=== PATIENT | male | born 1965 | race Asian ===

== ENCOUNTER 2018-08-29 14:07 | Inpatient (IN) | payer BC ==
[~2018-08-29] VITALS: Ht 157.5 cm; Wt 65.0 kg
[2018-08-29 14:12] VITALS: Ht 157.5 cm; Wt 65.0 kg
[2018-08-29] MEDS ORDERED: SOD CHLORIDE 0.9% 1,000 ML IV STA (14:24)
--- NOTE | 2018-08-29 14:40 | ERD ---
ER Documentation Chief Complaint Chief Complaint SUDDEN ONSET OF CP WHEN LIFTING HEAVY OBJECT. PT DIAPHORETIC AND DIZZY HPI This is a 53-year-old male with no significant past medical history who is presenting with onset sharp midsternal nonradiating chest pain that occurred while he was lifting a printer upstairs. The patient felt suddenly lightheaded at the time with an urge to urinate. He did not fully syncopized. He was able to go to urinate without difficulty in the bathroom. He also endorses a brief episode of diaphoresis. He did not feel short of breath. He was not nauseated. His symptoms lasted a few minutes. The patient does endorse drinking multiple cups of coffee. He feels dehydrated and hungry and believes that this combination led to this event today. The patient's symptoms have since resolved. He did eat some crackers and feels better. The patient currently denies any complaints. He does not endorse any other alleviating or exacerbating factors per The patient denies feeling sick recently. The patient denies fever or chills. The patient has had no headache or vision changes. The patient does not endorse neck or back pain. The patient denies dizziness. The patient denies abdominal pain. The patient denies changes to bowel movements or urination. The patient has had no focal deficits. The patient has had no weakness or numbness or tingling to the face or extremities. ROS All systems reviewed and are negative except as per history of present illness. Medications Home Meds No Active Prescriptions or Reported Meds Allergies Allergies: Coded Allergies: No Known Allergy (Unverified , 08/29/18) PMhx/Soc Medical and Surgical Hx: pt denies Medical Hx, pt denies Surgical Hx History of Surgery: No Hx Neurological Disorder: No Hx Respiratory Disorders: No Hx Cardiac Disorders: No Hx Psychiatric Problems: No Hx Miscellaneous Medical Probl: No Hx Alcohol Use: No Hx Substance Use: No Hx Tobacco Use: No FmHx Family History: No diabetes Physical Exam Vitals Vital Signs Date Temp Pulse Resp B/P (MAP) Pulse Ox O2 O2 Flow FiO2 Time Delivery Rate 08/29/18 Nasal 2 14:50 Cannula 08/29/18 97.4 66 17 165/96 99 14:12 (119) Physical Exam Const: No apparent distress, well-developed, well-nourished Head: Normocephalic, Atraumatic Eyes: Normal Conjunctiva. Extraocular movements intact. Pupils equal, round and reactive to light ENT: Normal External Ears, Nose and Mouth. Neck: Full range of motion. No meningismus. Resp: Clear to auscultation bilaterally, No wheezes, rales or rhonchi Cardio: Regular rate and rhythm. No murmurs, rubs or gallops Abd: Soft, non tender, non distended. Normal bowel sounds Skin: No petechiae or rashes Back: No midline tenderness. No CVA tenderness Ext: No cyanosis, or edema Neur: Awake and alert, oriented 4. Cranial nerves intact. No facial droop. Normal strength, sensation and coordination. Psych: Normal Mood and Affect Result Diagram: 08/29/18 1444 08/29/18 1444 Results 24 hrs Laboratory Tests Test 08/29/18 14:28 08/29/18 14:44 Bedside Glucose 85 mg/dL White Blood Count 11.1 10^3/ul Red Blood Count 4.83 10^6/ul Hemoglobin 15.2 g/dl Hematocrit 44.6 % Mean Corpuscular Volume 92.3 fl Mean Corpuscular Hemoglobin 31.5 pg Mean Corpuscular Hemoglobin Concent 34.1 g/dl Red Cell Distribution Width 12.5 % Platelet Count 192 10^3/UL Mean Platelet Volume 9.9 fl Immature Granulocytes % 0.400 % Neutrophils % 61.4 % Lymphocytes % 25.6 % Monocytes % 6.4 % Eosinophils % 5.8 % Basophils % 0.4 % Nucleated Red Blood Cells % 0.0 /100WBC Immature Granulocytes # 0.040 10^3/ul Neutrophils # 6.8 10^3/ul Lymphocytes # 2.9 10^3/ul Monocytes # 0.7 10^3/ul Eosinophils # 0.6 10^3/ul Basophils # 0.1 10^3/ul Nucleated Red Blood Cells # 0.0 10^3/ul Sodium Level 137 mmol/L Potassium Level 3.6 mmol/L Chloride Level 103 mmol/L Carbon Dioxide Level 25 mmol/L Anion Gap 9 Blood Urea Nitrogen 14 mg/dl Creatinine 0.92 mg/dl Est Glomerular Filtrat Rate mL/min > 60 mL/min Glucose Level 115 mg/dl Calcium Level 9.0 mg/dl Troponin I 0.402 ng/ml Current Medications Medications Dose Sig/Long Start Time Status Last (Trade) Ordered Route PRN Stop Time Admin Dose Reason Admin Sodium 1,000 ml @ Q1H STAT 08/29/18 DC 08/29/18 Chloride 1,000 mls/hr IV 14:24 08/29/18 14:49 15:23 Aspirin 324 mg ONCE ONCE 08/29/18 DC 08/29/18 (Aspirin) PO 15:30 08/29/18 16:00 15:31 Procedures/MDM MDM The patient's presentation warrants further investigation. Previous medical records, if available, were reviewed. LABS The patient's laboratory testing was obtained and reviewed. No emergent tr eatment was required unless described below. CBC: No E/o systemic infection or severe anemia or thrombocytopenia Chemistry: No E/o severe acidosis or alkalosis or renal failure or diabetic ketoacidosis Troponin: E/o acute ischemia EKG EKG read by me: Rate/Rhythm: Regular rate and rhythm at a rate of 67 bpm Intervals: Normal Clio: Normal Impression: LVH with early repolarization abnormality. No evidence of acute ischemia. IMAGING Imaging and Radiology interpretation reviewed. CXR FINDINGS: The lungs are clear. The heart size is normal. There is no pleural effusion. There is no pneumothorax. IMPRESSION: Normal chest radiograph. Electronically viewed and signed by .Pancho Herrera MD, MD on 08/29/2018 14:51 TREATMENT/DISPOSITION The patient presents with symptoms concerning for chest pain a nearsyncopal event. The patient's EKG reveals nonspecific repolarization changes including LVH with early repolarization. The patient was also hypertensive in the emergency department, which appears to have been undiagnosed, as the patient is not on any medications and does not report any medical problems. The patient's troponin is also elevated, which is very concerning for an NSTEMI. This is likely to be the cause of his symptoms today. The patient was given aspirin in the emergency department. Other etiologies of syncope were considered. The patient endorses feeling dehydrated and not eating today. He endorses drinking multiple cups of coffee. The patient was also lifting something quite heavy. I do have suspicion for a vasovagal event today as well. The patient has a reassuring physical exam. The patient is not clinically orthostatic. The patient is not dizzy. I have decreased suspicion for vertigo. The patient has no signs of emergent or symptomatic anemia. The patient does not have any emergent electrolyte or metabolic emergencies. I have decrease suspicion for a thyroid disorder. The patient is not toxic appearing. I have decreased suspicion for an infectious etiology of symptoms. I do not see evidence of any emergent cardiac arrhythmia, which includes but is not limited to heart block, Brugada syndrome or WPW. The patient has no heart murmurs or rales. There is no evidence of cardiomegaly on exam or chest xray. I have low suspicion for hypertrophic cardiomyopathy. I do not see evidence of CHF. The patient does not endorse any chest or pleuritic pain. The history is negative for bleeding or clotting disorders. The patient has not been involved in any recent prolonged trips or surgeries or hospitalizations. The patient has no calf tenderness or swelling. I have decreased suspicion for PE as the etiology of symptoms. The patient's chest xray does not reveal pneumonia or pneumothorax or pleural effusions or pulmonary edema. The patient does not have a widened mediastinum and does not have signs or symptoms concerning for thoracic aortic aneurysm or dissection. The patient does not have pneumomediastinum or signs concerning for esophageal tear or rupture. The patient has no clinical or radiographic signs of pericardial effusion or tamponade. The patient does not have pneumoperitoneum and I have decreased suspicion of viscus perforation as possible referred pain. The patient has no focal deficits. The neurologic exam is reassuring. I have decreased suspicion for cerebral ischemia. There was no trauma or injury. There is no personal or family history of cerebral aneurysm. I have decreased suspicion for SAH or other ICH. I have low suspicion for temporal arteritis, cavernous venous thrombosis, subdural hematoma, epidural hematoma, meningitis. ADMISSION At this time, I feel that the patient requires admission for further evaluation and management. The patient has [employer] insurance, but the patient is at risk of hemodynamic compromise/collapse and is not stable for transfer. The patient will be admitted to [facility]. The patient was accepted by Dr. Hernandez to telemetry at 5:49 PM on August 29, 2018. Dr. Soto, the ship's master contracted with [facility], was consulted on the case and will evaluate the patient in the hospital. CRITICAL CARE NOTE Time: 35 minutes excluding all billable procedures. Treatments/Evaluations: The patient was at risk of hemodynamic compromise. Timing of critical care involved close serial monitoring, evaluation of the patient's medical record including previous records & current laboratory/imaging studies, potential interventions for prevention of hemodynamic/ cardiopulmonary/ neurologic compromise, maintaining tight fluid balance, and any discussions with the family and/or consultants regarding the patient's status and prognosis. Disclaimer: Inadvertent spelling and grammatical errors are likely due to EHR/dictation software use and do not reflect on the overall quality of patient care. Note that the electronic time recorded on this note does not necessarily reflect the actual time of the patient encounter. Departure Diagnosis: Primary Impression: NSTEMI (non-ST elevated myocardial infarction) Additional Impressions: Near syncope Chest pain Chest pain type: unspecified Qualified Codes: R07.9 - Chest pain, unspecified Elevated blood pressure reading Leukocytosis Leukocytosis type: unspecified Qualified Codes: D72.829 - Elevated white blood cell count, unspecified Elevated troponin LVH (left ventricular hypertrophy) Condition: Serious PAKO MARTINEZ MD Aug 29, 2018 14:39
[2018-08-29] MEDS ORDERED: ASPIRIN 81 MG TAB PO ONE ×2 (15:30→23:30)
[2018-08-29] MEDS ORDERED: ACETAMINOPHEN 325 MG TAB PO PRN ×2 (18:00→18:30)
[2018-08-29] MEDS ORDERED: ONDANSETRON 4 MG INJ IV PRN ×2 (18:00→18:30)
[2018-08-29] MEDS ORDERED: POTASSIUM CHLORIDE (SR) 20 MEQ TAB PO STA (18:27)
[2018-08-29] MEDS ORDERED: NITROGLYCERIN (SL) 0.4 MG TAB SL PRN (18:30)
[2018-08-29] MEDS ORDERED: DOCUSATE SODIUM 100 MG CAP PO PRN (18:30)
[2018-08-29] MEDS ORDERED: MAGNESIUM HYDROXIDE 30ML CUP PO PRN (18:30)
[2018-08-29] MEDS ORDERED: HYDROCODONE/APAP (5/325) TAB PO PRN (18:30)
[2018-08-29] MEDS ORDERED: NACL 0.9% 3 ML SYG IV SCH (18:30)
[2018-08-29] MEDS ORDERED: morphine 2 MG INJ IV PRN (18:30)
--- NOTE | 2018-08-29 18:35 | HP ---
Date/Time of Note Date/Time of Note DATE: 08/29/18 TIME: 18:28 Assessment/Plan VTE Prophylaxis SCD applied (from Nsg): Yes Pharmacological prophylaxis: LMWH Lines/Catheters IV Catheter Type (from Nrsg): Saline Lock Assessment/Plan Assessment/Plan 1. Acute chest pain, rule out ACS - patient was lifting a scanner when experienced onset of chest discomfort - Trop slightly elevated and will continue to trend - Cardiology was consulted in ED and awaiting recommendations - pain control, nitro, aspirin, and PRN O2 - ECHO ordered to assess EF and structural abnl - EKG negative for acute ST changes 2. Diet - Cardiac 3. Disposition - Admit to telemetry for chest pain workup Result Diagram: 08/29/18 1444 08/29/18 1444 Results 24hrs Laboratory Tests Test 08/29/18 14:28 08/29/18 14:44 Bedside Glucose 85 White Blood Count 11.1 H Red Blood Count 4.83 Hemoglobin 15.2 Hematocrit 44.6 Mean Corpuscular Volume 92.3 Mean Corpuscular Hemoglobin 31.5 Mean Corpuscular Hemoglobin Concent 34.1 Red Cell Distribution Width 12.5 Platelet Count 192 Mean Platelet Volume 9.9 Immature Granulocytes % 0.400 Neutrophils % 61.4 Lymphocytes % 25.6 Monocytes % 6.4 Eosinophils % 5.8 Basophils % 0.4 Nucleated Red Blood Cells % 0.0 Immature Granulocytes # 0.040 H Neutrophils # 6.8 Lymphocytes # 2.9 Monocytes # 0.7 Eosinophils # 0.6 H Basophils # 0.1 Nucleated Red Blood Cells # 0.0 Sodium Level 137 Potassium Level 3.6 Chloride Level 103 Carbon Dioxide Level 25 Anion Gap 9 Blood Urea Nitrogen 14 Creatinine 0.92 Est Glomerular Filtrat Rate mL/min > 60 Glucose Level 115 Calcium Level 9.0 Troponin I 0.402 *H HPI/ROS Admit Date/Time Admit Date/Time 08/29/18 1800 Hx of Present Illness 53 yo M with PMH no significant PMH presented to ED secondary to sudden onset of sternal pain, moderate in nature, nonradiating, not associated with dizziness, shortness of breath, nausea or vomiting. Patient works at [employer] and was lifting a scanner twice prior to experiencing the pain. He states he got diaphoretic and described the pain as similar to heart burn. Patient states the pain lasted minutes and resolved. He states he was experiencing bilateral arm fatigue since yesterday but does pull up and push ups on a daily basis and was feeling sore this am. Patient denies any history of cardiac issues and no family history of cardiac disease. Patient admits to drinking multiple cups of coffee a day as well as 1 ppd tobacco use. ROS All 12 systems reviewed and pertinent positives as per HPI. All others negative. Constitutional: diaphoresis, fatigue; No nausea Eyes: No discharge ENT: No congestion Respiratory: No pain, No cough, No shortness of breath, No wheezing Cardiovascular: chest pain; No edema, No lightheadedness, No palpitations Gastrointestinal: No pain, No constipation, No diarrhea, No nausea, No vomiting Genitourinary: no complaints Musculoskeletal: other (arm fatigue) Skin: No laceration, No rash Neurologic: No confusion, No focal-weakness, No syncope Endocrine: no complaints Lymphatic: no complaints Psychological: nl mood/affect Immunologic: no complaints PMH/Family/Social Past Medical History Medical History: no pertinent history Medications Current Medications Ondansetron HCl (Zofran Inj) 4 mg ER BRIDGE PRN IV NAUSEA/VOMITING; Start 08/29/18 at 18:00; Stop 08/30/18 at 17:59 Acetaminophen (Tylenol Tab) 650 mg ER BRIDGE PRN PO .MILD PAIN 1-3 OR TEMP; Start 08/29/18 at 18:00; Stop 08/30/18 at 17:59 IV Flush (NS 3 ml) 3 ml PER PROTOCOL IV ; Start 08/29/18 at 18:30; Status UNV Ondansetron HCl (Zofran Inj) 4 mg Q6H PRN IV NAUSEA/VOMITING; Start 08/29/18 at 18:30; Status UNV Nitroglycerin (Nitroglycerin (Sl Tab) 0.4 Mg) 1 tab Q5M PRN SL .CHEST PAIN; Start 08/29/18 at 18:30; Status UNV Acetaminophen (Tylenol Tab) 650 mg Q6H PRN PO .PAIN 1-3 OR TEMP; Start 08/29/18 at 18:30; Status UNV Acetaminophen/ Hydrocodone Bitart ([place] (5/325)) 1 tab Q6H PRN PO .PAIN 4-6; Start 08/29/18 at 18:30; Status UNV Docusate Sodium (Colace) 100 mg Q12H PRN PO .CONSTIPATION; Start 08/29/18 at 18:30; Status UNV Magnesium Hydroxide (Milk Of Mag) 30 ml DAILY PRN PO .CONSTIPATION; Start 08/29/18 at 18:30; Status UNV Pantoprazole (Protonix Tab) 40 mg DAILY@06 PO ; Start 08/30/18 at 06:00; Status UNV Enoxaparin Sodium (Lovenox) 40 mg DAILY SC ; Start 08/30/18 at 09:00; Status UNV Morphine Sulfate (morphine) 2 mg Q2H PRN IV PAIN LEVEL 4-6; Start 08/29/18 at 18:30; Status UNV Coded Allergies: No Known Allergy (Unverified , 08/29/18) Past Surgical History Past Surgical Hx: no surgical history Family History Significant Family History: hypertension Social History Alcohol Use: none Smoking Status: Current every day smoker Drug Use: none Exam/Review of Systems Vital Signs Vitals Vital Signs Date Temp Pulse Resp B/P (MAP) Pulse Ox O2 O2 Flow FiO2 Time Delivery Rate 08/29/18 Nasal 2 14:50 Cannula 08/29/18 97.4 66 17 165/96 99 14:12 (119) Exam Exam General: Patient is laying in bed and answers questions. no acute distress Head: Normocephalic atraumatic Eyes: EOMI, pupils reactive to light Neck: Supple, nontender, midline Chest: nontender Respiratory: Clear to auscultation bilaterally. no wheezing or rhonchi Cardiovascular: S1, S2, regular rate and rhythm, no obvious murmurs Gastrointestinal: soft, nontender to palpation, nondistended, bowel sounds heard. no rebound or guarding Neurological: Moves all extremities spontaneously. no focal deficits. motor and sensory intact Skin: No new skin lesions Additional Comments No home medications PROCEDURE: XR Chest. CLINICAL INDICATION: Chest pain. TECHNIQUE: Single frontal view. COMPARISON: 08/09/2016. FINDINGS: The lungs are clear. The heart size is normal. There is no pleural effusion. There is no pneumothorax. IMPRESSION: 1. Normal chest radiograph. RPTAT: QQ .Pancho Herrera MD, MD Date Time Electronically viewed and signed by .Pancho Herrera MD, MD on 08/29/2018 14:51 MYKEL ANDERSEN MD Aug 29, 2018 18:35
[2018-08-29 22:05] VITALS: PULSE 58
[2018-08-29] MEDS ORDERED: HEPARIN 1000 UNITS/ML 10 ML INJ IV ONE (23:30)
[2018-08-29] MEDS ORDERED: TICAGRELOR 90 MG TABLET PO ONE (23:30)
--- NOTE | 2018-08-29 23:54 | EN ---
Date/Time of Note Date/Time of Note DATE: 08/29/18 TIME: 23:50 Event Note Medicine Medicine Event Note Acute event note Patient seen and examined at the bedside is patient's troponin was noted to be rising from an initial of 0.424.2. Stat EKG was ordered. I examined the patient at the bedside and patient was resting comfortably at the current time was not complaining of any pain. Stat EKG did show ST elevation changes in leads V2 and V3 which did appear to be evolving from previous EKG. General: Patient currently sitting in bed in no acute distress CVS: Regular rate rhythm, no murmurs appreciated Lungs: Clear to oscillation bilaterally Neuro: Alert and oriented x3 Stat EKG: Sinus bradycardia at approximately 58 bpm, ST elevation changes in V2 and V3 concerning for ischemia Assessment and plan: #1 STEMI: I did speak with Dr. Gunn who was the infirmary attendant I was consulted and he recommended that we proceed with emergent [employer] for stemi. Patient will be given aspirin 325 mg, Brilinta 180 mg p.o., heparin 5000 units. Greater than 30 minutes of critical care time was spent on care managers patient. SHERON HOSKINS Aug 29, 2018 23:54
[2018-08-30] VITALS (23 sets, daily range): BP systolic 104–155; BP diastolic 62–100; PULSE 57–76; RESP 13–22
[2018-08-30] MEDS ORDERED: LIDOCAINE 1% (MDV) 20 ML INJ ONE (00:18)
[2018-08-30] MEDS ORDERED: HEPARIN 1000 UNITS/ML 10 ML INJ ONE (00:18)
[2018-08-30] MEDS ORDERED: IODIXANOL LOCM 100 ML BTL ONE ×2 (00:18→01:33)
[2018-08-30] MEDS ORDERED: VERAPAMIL 5 MG INJ ONE (00:21)
[2018-08-30] MEDS ORDERED: FENTAnyl 50 MCG/ML VIAL ONE (00:21)
[2018-08-30] MEDS ORDERED: MIDAZOLAM 1 MG/ML 2 ML INJ ONE (00:21)
[2018-08-30] MEDS ORDERED: NITROGLYCERIN (IC) 100 MCG/ML INJ ONE (00:22)
--- NOTE | 2018-08-30 00:32 | CONS ---
Assessment/Plan Assessment/Plan Hospital Course (Demo Recall) NSTEMI- evolving to BHARGAVI on ekg and trop increasing. no current chest discomfort. given progression in trop/ekg will take for urgent lhc/pci. given asa/heparin/ticagrelor. will monitor closely post procedure smoking- cessation recommended Consultation Date/Type/Reason Admit Date/Time 08/29/18 1800 Date of Consultation: Aug 30, 2018 Type of Consult Cardiology Reason for Consultation NSTEMI Requesting Provider: MYKEL ANDERSEN MD Date/Time of Note DATE: 08/30/18 TIME: 00:27 Hx of Present Illness 53 y.o. 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 pt also with sweating, feeling weak. seen in ED found to have elevated trop 0.4 pt states pain resolved in ed. repeat trop 4.5 and ekg with bhargavi v2-v3. pt denied any recurrent chest discomfort or arm pain. given progressive ekg changes and trop elevation pt taken to wastewater analyst lab analyst urgent for lhc/pci all other systems negative Past Medical History smoker Medical History: no pertinent history Home Meds No Active Prescriptions or Reported Meds Medications Current Medications Ondansetron HCl (Zofran Inj) 4 mg ER BRIDGE PRN IV NAUSEA/VOMITING; Start 08/29/18 at 18:00; Stop 08/30/18 at 17:59 Acetaminophen (Tylenol Tab) 650 mg ER BRIDGE PRN PO .MILD PAIN 1-3 OR TEMP; Start 08/29/18 at 18:00; Stop 08/30/18 at 17:59 IV Flush (NS 3 ml) 3 ml PER PROTOCOL IV ; Start 08/29/18 at 18:30 Ondansetron HCl (Zofran Inj) 4 mg Q6H PRN IV NAUSEA/VOMITING; Start 08/29/18 at 18:30 Nitroglycerin (Nitroglycerin (Sl Tab) 0.4 Mg) 1 tab Q5M PRN SL .CHEST PAIN; Start 08/29/18 at 18:30 Acetaminophen (Tylenol Tab) 650 mg Q6H PRN PO .PAIN 1-3 OR TEMP; Start 08/29/18 at 18:30 Acetaminophen/ Hydrocodone Bitart ([place] (5/325)) 1 tab Q6H PRN PO .PAIN 4-6; Start 08/29/18 at 18:30 Docusate Sodium (Colace) 100 mg Q12H PRN PO .CONSTIPATION; Start 08/29/18 at 18:30 Magnesium Hydroxide (Milk Of Mag) 30 ml DAILY PRN PO .CONSTIPATION; Start 08/29/18 at 18:30 Pantoprazole (Protonix Tab) 40 mg DAILY@06 PO ; Start 08/30/18 at 06:00 Enoxaparin Sodium (Lovenox) 40 mg DAILY SC ; Start 08/30/18 at 09:00 Morphine Sulfate (morphine) 2 mg Q2H PRN IV PAIN LEVEL 4-6; Start 08/29/18 at 18:30 Allergies: Coded Allergies: No Known Allergy (Unverified , 08/29/18) Past Surgical History Past Surgical Hx: no surgical history Family History Significant Family History: no pertinent family hx Social History Alcohol Use: none Smoking Status: Current every day smoker Drug Use: none Exam/Review of Systems Exam Vitals Vital Signs Date Temp Pulse Resp B/P (MAP) Pulse Ox O2 O2 Flow FiO2 Time Delivery Rate 08/30/18 98.3 63 19 121/62 97 00:00 (81) 08/29/18 Room Air 21:22 08/29/18 2 14:50 Constitutional: alert, oriented Psych: no complaints, nl mood/affect Head: normocephalic, atraumatic Eyes: nl conjunctiva, EOMI, nl lids ENMT: nl external ears & nose, nl lips & teeth, nl nasal mucosa & septum Neck: supple, non-tender; No jvd Respiratory: clear to auscultation, normal air movement Cardiovascular: regular rate and rhythm, nl pulses; No bruits, No diastolic murmur, No edema, No jugular venous distention (JVD), No systolic murmur, No S3, No S4 Gastrointestinal: soft, nl liver, spleen, non-tender Musculoskeletal: nl extremities to inspection, nl gait and stance Extremities: normal pulses Neurological: DOORPERSON OR LUGGAGE PORTER II-XII intact, nl mental status, nl speech, nl strength Skin: nl turgor Results Result Diagram: 08/29/18 1444 08/29/18 1444 Results 24hrs Laboratory Tests Test 08/29/18 14:28 08/29/18 14:44 08/29/18 22:01 Bedside Glucose 85 White Blood Count 11.1 H Red Blood Count 4.83 Hemoglobin 15.2 Hematocrit 44.6 Mean Corpuscular Volume 92.3 Mean Corpuscular Hemoglobin 31.5 Mean Corpuscular Hemoglobin Concent 34.1 Red Cell Distribution Width 12.5 Platelet Count 192 Mean Platelet Volume 9.9 Immature Granulocytes % 0.400 Neutrophils % 61.4 Lymphocytes % 25.6 Monocytes % 6.4 Eosinophils % 5.8 Basophils % 0.4 Nucleated Red Blood Cells % 0.0 Immature Granulocytes # 0.040 H Neutrophils # 6.8 Lymphocytes # 2.9 Monocytes # 0.7 Eosinophils # 0.6 H Basophils # 0.1 Nucleated Red Blood Cells # 0.0 Sodium Level 137 Potassium Level 3.6 Chloride Level 103 Carbon Dioxide Level 25 Anion Gap 9 Blood Urea Nitrogen 14 Creatinine 0.92 Est Glomerular Filtrat Rate mL/min > 60 Glucose Level 115 Hemoglobin A1c 5.7 Calcium Level 9.0 Troponin I 0.402 *H 4.860 *H Creatine Kinase 676 H Creatine Kinase Index 2.8 Creatinine Kinase MB (Mass) 19.00 H Imaging Imaging cxr report reviewed Medications Medication Current Medications Ondansetron HCl (Zofran Inj) 4 mg ER BRIDGE PRN IV NAUSEA/VOMITING; Start at 18:00; Stop 08/30/18 at 17:59 Acetaminophen (Tylenol Tab) 650 mg ER BRIDGE PRN PO .MILD PAIN 1-3 OR TEMP; Start 08/29/18 at 18:00; Stop 08/30/18 at 17:59 IV Flush (NS 3 ml) 3 ml PER PROTOCOL IV ; Start 08/29/18 at 18:30 Ondansetron HCl (Zofran Inj) 4 mg Q6H PRN IV NAUSEA/VOMITING; Start 08/29/18 at 18:30 Nitroglycerin (Nitroglycerin (Sl Tab) 0.4 Mg) 1 tab Q5M PRN SL .CHEST PAIN; Start 08/29/18 at 18:30 Acetaminophen (Tylenol Tab) 650 mg Q6H PRN PO .PAIN 1-3 OR TEMP; Start 08/29/18 at 18:30 Acetaminophen/ Hydrocodone Bitart ([place] (5/325)) 1 tab Q6H PRN PO .PAIN 4-6; Start 08/29/18 at 18:30 Docusate Sodium (Colace) 100 mg Q12H PRN PO .CONSTIPATION; Start 08/29/18 at 18:30 Magnesium Hydroxide (Milk Of Mag) 30 ml DAILY PRN PO .CONSTIPATION; Start 08/29/18 at 18:30 Pantoprazole (Protonix Tab) 40 mg DAILY@06 PO ; Start 08/30/18 at 06:00 Enoxaparin Sodium (Lovenox) 40 mg DAILY SC ; Start 08/30/18 at 09:00 Morphine Sulfate (morphine) 2 mg Q2H PRN IV PAIN LEVEL 4-6; Start 08/29/18 at 18:30 LACY FLEMING Aug 30, 2018 00:32
[2018-08-30] MEDS ORDERED: IOHEXOL 350MG/ML 50 ML BTL ONE (01:34)
[2018-08-30] MEDS ORDERED: SOD CHLORIDE 0.45% 1,000 ML IV SCH (02:07)
[2018-08-30] MEDS ORDERED: morphine 2 MG INJ IV PRN (02:30)
[2018-08-30] MEDS ORDERED: AL HYDROX/MG HYDROX/SIMETH 30 ML CUP PO PRN (02:30)
[2018-08-30] MEDS ORDERED: ONDANSETRON 4 MG INJ IV PRN (02:30)
[2018-08-30] MEDS ORDERED: OXYCODONE/ACETAMINOPHEN (5/325) TAB PO PRN (02:30)
[2018-08-30] MEDS ORDERED: ACETAMINOPHEN 325 MG TAB PO PRN (02:30)
[2018-08-30] MEDS: PANTOPRAZOLE (EC) 40 MG TAB PO SCH (06:07)
[2018-08-30] MEDS: DOCUSATE SODIUM 100 MG CAP PO SCH ×2 (08:07→20:38)
[2018-08-30] MEDS: FAMOTIDINE 20 MG TAB PO SCH ×2 (08:08→20:38)
--- NOTE | 2018-08-30 08:18 | OPR ---
DATE OF OPERATION: 08/30/2018 PREOPERATIVE DIAGNOSIS: 1. ST elevation myocardial infarction. POSTOPERATIVE DIAGNOSES: 1. Coronary artery disease with acute myocardial infarction. 2. Status post percutaneous coronary intervention to mid left circumflex with drug-eluting stent x1. 3. PTCA alone of the distal left circumflex. REFERRING PHYSICIAN: Tomasa Hernandez M.D. PROCEDURE PERFORMED: 1. Left heart catheterization. 2. Administration of moderate sedation. 3. Percutaneous coronary intervention of acute thrombotic lesion in the mid left circumflex. 4. Percutaneous transluminal coronary angioplasty alone of the distal left circumflex. HISTORY: The patient is a 53-year-old man with a history of smoking, presented to [facility], where he works with chest pain, arm pain, found to have non-STEMI initially; nigeleve r, had progression of troponin from 0.[address] elevation in anterior leads. The patient felt well; however, decision was made to proceed to emergent left cardiac catheterization PCI. The patien t and family were aware of all risks, benefits prior to arrival in catheterization lab. PROCEDURE DESCRIPTION: The patient was brought to catheterization lab in stable condition after info rmed consent was obtained. Right wrist was prepped and draped in usual sterile fashion and anestheti zed with 1% lidocaine solution. Right radial artery access was obtained using through and through te chnique and 6-Kyrgyz Terumo Slender sheath was placed in the right radial artery without difficulty. A Cardiolite 4.0 6-Kyrgyz guide catheter was advanced to the left coronary over wire under fluorosco pic guidance. Cineangiograms were performed of the left coronary artery and then right coronary esthela ry. Cardiolite was advanced over a wire to the LV and pressures were obtained including LV to AO pul lback. Given acute lesion in left circumflex, decision was made to proceed with PCI. PCI DESCRIPTION: The patient's was given additional IV heparin and loaded with aspirin and ticagrelo r prior to arrival in catheterization lab. ACT was checked and confirmed in the therapeutic range. A 180 cm Runthrough wire was advanced to the distal OM1 to mid left circumflex without difficulty. Jacqueline wynn heavy thrombus burden aspiration catheter brought to catheter was advanced to the mid left circu mflex and aspiration thrombectomy was performed. The aspiration catheter was then exchanged for a 3. 5 x 20 mm drug-eluting stent was used to stent from proximal left circumflex jailing the mid to dista l left circumflex. After angioplasty, it was noted that this was less effective branch. Therefore, 190 cm BMW wire was advanced to the distal circumflex without difficulty. A 2.5 x 8 mm Emerge balloo n was advanced to the ostium at the bifurcation of the OM and distal circumflex as well as a 3.5 x 12 mm Emerge balloon was advanced to the mid left circumflex stent and kissing balloon inflations were performed on the 2 vessels simultaneously. The 2.5 mm balloon was removed and a 3.5 mm balloon was w ithdrawn proximally for postdilation of the proximal stent to high pressure. Both wounds were remove d. Repeat angiograms were obtained after IC nitro was given. The distal left circumflex lesion was evaluated and attempted PCI was made, the 180 cm Runthrough wire was then advanced past the distal le ft circumflex lesion. A 2.25 x 12 mm drug-eluting stent was advanced to the lesion; however, this wo uld not cross. The stent was removed and deployed a 2.0 x 12 mm Emerge balloon was then advanced to his left circumflex and inflated to 8 atms and balloon was removed. Reattempted crossing was made wi th 2.25 mm drug-eluting stent. However, this still would not cross. Repeat angiogram showed no evid ence of dissection or impairment of distal flow. There was improvement of stenosis and the patient w as chest pain free. Decision was made at this point to not attempt any further attempted PCI conclud ed with an angioplasty and 1% of the distal left circumflex artery. All wires and catheters removed. Angiograms were obtained showing no evidence of dissection, perforation or distal embolization. He mostasis obtained with TR band. The patient tolerated procedure well without complication. Estimate d blood loss less than 100 mL. COMPLICATIONS: None. SPECIMENS OBTAINED: None. FINDINGS: HEMODYNAMICS: Opening pressure 141/10. The patient's opening pressure was 133/78 with a mean pressu re 101. LVEDP is 25 mmHg without any significant gradient LV to AO pullback. CORONARY ANATOMY: 1. Left main is a large vessel, short length without significant disease. 2. LAD is a large wraparound vessel. Proximal has mild diffuse disease, calcific, which is 20%. It gives rise to a large diagonal 1, which has mild proximal disease, 20%. The mid LAD has disease 30% , which is diffuse. The distal LAD has mild diffuse disease 10%. 3. Left circumflex artery: A large nondominant artery. There is a small OM1, which arises early wi th a proximal 20% to 30% lesion. The mid left circumflex has a thrombotic acute lesion 90% with LORENE 3 flow. It gives rise to a very large OM2 branch, which is mild diffuse disease 20% to 30%. The pa tient distal left circumflex appears to have ostial 30% lesion after bifurcation of the OM2 vessel. More distal portion of the left circumflex has an 80% lesion with LORENE 3 flow. 4. Right coronary artery: There is a very large, dominant branch. Proximally has a diffuse 20% ana rosa nosis. Mid circumflex has diffuse 20% stenosis. 5. The distal right coronary has no significant disease and bifurcates into a long average size righ t PDA and artery without disease and a right posterolateral branch with a mid 40% stenosis. PERCUTANEOUS CORONARY INTERVENTION LESION DESCRIPTION: 1. (Mid LAD), pre-stenosis 89%, post-stenosis 0%. Pre-LORENE flow 3. Post-LORENE flow 3, thrombotic le rhona. Status post percutaneous coronary intervention with 3.5 x 20 mm Synergy drug-eluting stent. 2. (Distal LAD), pre-stenosis 80%, post-stenosis 50%. Pre-LORENE flow 3, post-LORENE [address] PTCA alone with 2.0 mm balloon. SUMMARY: 1. Acute myocardial infarction due to mid LAD thrombotic stenosis. 2. Chronic left circumflex severe disease. 3. Moderately elevated left ventricular filling pressures. 4. Successful PCI to mid left circumflex artery and PTCA to distal left circumflex artery. RECOMMENDATIONS: 1. Continue aspirin 81 mg p.o. daily. 2. Continue ticagrelor 90 mg p.o. b.i.d. 3. Add high dose statin. Add beta gonzalo as tolerated and p.r.n. nitrates. Obtain echo in the [facility]. Monitor closely, postprocedure in ICU. Dictated By: LACY HINOJOSA/AURELIA Conf#: [id number] DID#: [id number] CC: LACY FLEMING MD; TOMASA HERNANDEZ MD;*[facility]*
--- NOTE | 2018-08-30 08:58 | PN ---
Date/Time of Note Date/Time of Note DATE: 08/30/18 TIME: 08:57 Assessment/Plan VTE Prophylaxis Risk score (from Ns)>0 risk: 2 SCD applied (from Ns): Yes Pharmacological prophylaxis: other Lines/Catheters IV Catheter Type (from Nrsg): Peripheral IV Urinary Cath still in place: No Assessment/Plan Assessment/Plan 1. STEMI - Patient taken to clinical genetics laboratory chief overnight and stent placed - Cardiology on board and appreciate recommendations. Will continue on DAPT - lipid panel and A1c results noted - HR low and will place holding parameters on BB. May not be able to tolerate 2. Tobacco abuse - nicotine abuse 3. Disposition - Stable for transfer to telemetry - will continue to monitor overnight and if no issue, will d/c tomorrow when cleared by cardiology Result Diagram: 08/30/1844008/30/18440 Results 24hrs Laboratory Tests Test 08/29/18 14:28 08/29/18 14:44 08/29/18 22:01 08/30/18 04:41 Bedside Glucose 85 White Blood Count 11.1 H 10.1 Red Blood Count 4.83 4.47 L Hemoglobin 15.2 14.1 Hematocrit 44.6 41.9 L Mean Corpuscular Volume 92.3 93.7 Mean Corpuscular 31.5 31.5 Hemoglobin Mean Corpuscular 34.1 33.7 Hemoglobin Concent Red Cell Distribution 12.5 12.6 Width Platelet Count 192 201 Mean Platelet Volume 9.9 10.3 Immature Granulocytes % 0.400 0.500 H Neutrophils % 61.4 57.2 Lymphocytes % 25.6 27.4 Monocytes % 6.4 7.2 Eosinophils % 5.8 7.1 H Basophils % 0.4 0.6 Nucleated Red Blood 0.0 0.0 Cells % Immature Granulocytes # 0.040 H 0.050 H Neutrophils # 6.8 5.8 Lymphocytes # 2.9 2.8 Monocytes # 0.7 0.7 Eosinophils # 0.6 H 0.7 H Basophils # 0.1 0.1 Nucleated Red Blood 0.0 0.0 Cells # Sodium Level 137 142 Potassium Level 3.6 4.2 Chloride Level 103 108 Carbon Dioxide Level 25 27 Anion Gap 9 7 Blood Urea Nitrogen 14 13 Creatinine 0.92 0.85 Est Glomerular Filtrat > 60 > 60 Rate mL/min Glucose Level 115 105 Hemoglobin A1c 5.7 Calcium Level 9.0 8.7 Troponin I 0.402 *H 4.860 *H 5.620 *H Creatine Kinase 676 H 611 H Creatine Kinase Index 2.8 3.2 Creatinine Kinase MB 19.00 H 19.60 H (Mass) Magnesium Level 2.1 Triglycerides Level 145 Cholesterol Level 161 LDL Cholesterol, 90 Calculated HDL Cholesterol 42 Cholesterol/HDL Ratio 3.8 Thyroid Stimulating 1.550 Hormone (TSH) Subjective 24 Hr Interval Summary Free Text/Dictation Patient denies any chest pain this am. Counseled about lifestyle modifications with at bedside. Exam/Review of Systems Exam Vitals Vital Signs Date Temp Pulse Resp B/P (MAP) Pulse Ox O2 O2 Flow FiO2 Time Delivery Rate 08/30/18 98.4 60 18 155/84 100 Room Air 08:00 (107) 08/29/18 2 14:50 Intake and Output 08/29/18 08/29/18 08/30/18 1515:00 23:00 07:00 IntakeIntake Total 375 ml OutputOutput Total 300 ml BalanceBalance 75 ml Exam General: Patient is laying in bed and answers questions. no acute distress Chest: nontender Respiratory: Clear to auscultation bilaterally. no wheezing or rhonchi Cardiovascular: S1, S2, bradycardia, regular rhythm, no obvious murmurs Gastrointestinal: soft, nontender to palpation, nondistended, bowel sounds heard Skin: No new skin lesions Results Results 24hrs Laboratory Tests Test 08/29/18 14:28 08/29/18 14:44 08/29/18 22:01 08/30/18 04:41 Bedside Glucose 85 White Blood Count 11.1 H 10.1 Red Blood Count 4.83 4.47 L Hemoglobin 15.2 14.1 Hematocrit 44.6 41.9 L Mean Corpuscular Volume 92.3 93.7 Mean Corpuscular 31.5 31.5 Hemoglobin Mean Corpuscular 34.1 33.7 Hemoglobin Concent Red Cell Distribution 12.5 12.6 Width Platelet Count 192 201 Mean Platelet Volume 9.9 10.3 Immature Granulocytes % 0.400 0.500 H Neutrophils % 61.4 57.2 Lymphocytes % 25.6 27.4 Monocytes % 6.4 7.2 Eosinophils % 5.8 7.1 H Basophils % 0.4 0.6 Nucleated Red Blood 0.0 0.0 Cells % Immature Granulocytes # 0.040 H 0.050 H Neutrophils # 6.8 5.8 Lymphocytes # 2.9 2.8 Monocytes # 0.7 0.7 Eosinophils # 0.6 H 0.7 H Basophils # 0.1 0.1 Nucleated Red Blood 0.0 0.0 Cells # Sodium Level 137 142 Potassium Level 3.6 4.2 Chloride Level 103 108 Carbon Dioxide Level 25 27 Anion Gap 9 7 Blood Urea Nitrogen 14 13 Creatinine 0.92 0.85 Est Glomerular Filtrat > 60 > 60 Rate mL/min Glucose Level 115 105 Hemoglobin A1c 5.7 Calcium Level 9.0 8.7 Troponin I 0.402 *H 4.860 *H 5.620 *H Creatine Kinase 676 H 611 H Creatine Kinase Index 2.8 3.2 Creatinine Kinase MB 19.00 H 19.60 H (Mass) Magnesium Level 2.1 Triglycerides Level 145 Cholesterol Level 161 LDL Cholesterol, 90 Calculated HDL Cholesterol 42 Cholesterol/HDL Ratio 3.8 Thyroid Stimulating 1.550 Hormone (TSH) Medications Medication Current Medications Ondansetron HCl (Zofran Inj) 4 mg ER BRIDGE PRN IV NAUSEA/VOMITING; Start 08/29/18 at 18:00; Stop 08/30/18 at 17:59 Acetaminophen (Tylenol Tab) 650 mg ER BRIDGE PRN PO .MILD PAIN 1-3 OR TEMP; Start 08/29/18 at 18:00; Stop 08/30/18 at 17:59 IV Flush (NS 3 ml) 3 ml PER PROTOCOL IV ; Start 08/29/18 at 18:30 Ondansetron HCl (Zofran Inj) 4 mg Q6H PRN IV NAUSEA/VOMITING; Start 08/29/18 at 18:30 Nitroglycerin (Nitroglycerin (Sl Tab) 0.4 Mg) 1 tab Q5M PRN SL .CHEST PAIN; Start 08/29/18 at 18:30 Acetaminophen (Tylenol Tab) 650 mg Q6H PRN PO .PAIN 1-3 OR TEMP; Start 08/29/18 at 18:30 Acetaminophen/ Hydrocodone Bitart ([place] (5/325)) 1 tab Q6H PRN PO .PAIN 4-6; Start 08/29/18 at 18:30 Docusate Sodium (Colace) 100 mg Q12H PRN PO .CONSTIPATION; Start 08/29/18 at 18:30 Magnesium Hydroxide (Milk Of Mag) 30 ml DAILY PRN PO .CONSTIPATION; Start 08/29 at 18:30 Pantoprazole (Protonix Tab) 40 mg DAILY@06 PO Last administered on 08/30/18at 06:07; Admin Dose 40 MG; Start 08/30/18 at 06:00 Enoxaparin Sodium (Lovenox) 40 mg DAILY SC Last administered on 08/30/18at 08:10; Admin Dose 40 MG; Start 08/30/18 at 09:00 Morphine Sulfate (morphine) 2 mg Q2H PRN IV PAIN LEVEL 4-6; Start 08/29/18 at 18:30 Ticagrelor (Brilinta) 90 mg BID PO ; Start 08/30/18 at 09:00 Acetaminophen (Tylenol Tab) 650 mg Q4H PRN PO PAIN; Start 08/30/18 at 02:30 Oxycodone/ Acetaminophen (Percocet (5/ 325)) 1 tab Q4H PRN PO PAIN; Start 08/30/18 at 02:30 Morphine Sulfate (morphine) 1 mg Q1H PRN IV PAIN; Start 08/30/18 at 02:30 Al Hydrox/Mg Hydrox/Simethicone (Mag-Al Plus) 30 ml Q4H PRN PO GASTROINTESTINAL UPSET; Start 08/30/18 at 02:30 Ondansetron HCl (Zofran Inj) 4 mg Q4H PRN IV NAUSEA AND/OR VOMITING; Start 08/30/18 at 02:30 Docusate Sodium (Colace) 100 mg BID PO ; Start 08/30/18 at 09:00 Famotidine (Pepcid) 20 mg Q12 PO Last administered on 08/30/18at 08:08; Admin Dose 20 MG; Start 08/30/18 at 09:00 Carvedilol (Coreg) 3.125 mg BID PO ; Start 08/30/18 at 09:00 Atorvastatin Calcium (Lipitor) 80 mg DAILY@21 PO ; Start 08/30/18 at 21:00 MYKEL ANDERSEN MD Aug 30, 2018 08:57
[2018-08-30] MEDS ORDERED: ENOXAPARIN 40 MG/0.4 ML SYG SC SCH (09:00)
[2018-08-30] MEDS: TICAGRELOR 90 MG TABLET PO SCH ×2 (10:37→20:42)
[2018-08-30] MEDS: NICOTINE (21 MG/24 HR) PATCH TRANSDERM SCH (10:38)
--- NOTE | 2018-08-30 14:12 | RADRPT ---
Vent Rate: 55 bpm RR Interval: 0 msec ME Interval: 174 msec QRS Duration: 82 msec QT Interval: 428 msec QTC Interval: 409 msec P-R-T [place]: 65 - 64 - 47 degrees Sinus bradycardia Minimal voltage criteria for LVH, may be normal variant Borderline ECG Electronically Signed By: Pavan Chin
[2018-08-30] MEDS ORDERED: ATORVASTATIN 80 MG TAB PO SCH (21:00)
[2018-08-31] VITALS (18 sets, daily range): BP systolic 96–141; BP diastolic 70–92; PULSE 53–94; RESP 14–23
[2018-08-31] MEDS: PANTOPRAZOLE (EC) 40 MG TAB PO SCH (05:38)
[2018-08-31] MEDS: NICOTINE (21 MG/24 HR) PATCH TRANSDERM SCH (08:45)
[2018-08-31] MEDS: DOCUSATE SODIUM 100 MG CAP PO SCH (08:46)
[2018-08-31] MEDS: FAMOTIDINE 20 MG TAB PO SCH (08:46)
[2018-08-31] MEDS: TICAGRELOR 90 MG TABLET PO SCH (08:46)
--- NOTE | 2018-08-31 08:56 | PN ---
Date/Time of Note Date/Time of Note DATE: 08/31/18 TIME: 08:56 Assessment/Plan VTE Prophylaxis Risk score (from Ns)>0 risk: 3 SCD applied (from Ns): Yes Pharmacological prophylaxis: other Lines/Catheters IV Catheter Type (from Nrs): Peripheral IV Urinary Cath still in place: No Assessment/Plan Assessment/Plan 1. CAD s/p PCI - STEMI - Cardiology on board and appreciate recommendations. Will continue on DAPT - lipid panel and A1c results noted - Tolerating BB 2. Tobacco abuse - nicotine patch - cessation counseling provided 3. Disposition - Medically stable for discharge once cleared by Cardiology Result Diagram: 08/31/18 0454 08/31/18 0454 Results 24hrs Laboratory Tests Test 08/31/18 04:54 White Blood Count 11.6 H Red Blood Count 4.58 L Hemoglobin 14.5 Hematocrit 43.6 Mean Corpuscular Volume 95.2 Mean Corpuscular Hemoglobin 31.7 Mean Corpuscular Hemoglobin Concent 33.3 Red Cell Distribution Width 12.7 Platelet Count 202 Mean Platelet Volume 10.5 H Immature Granulocytes % 0.400 Neutrophils % 66.9 Lymphocytes % 18.2 Monocytes % 8.1 Eosinophils % 5.9 Basophils % 0.5 Nucleated Red Blood Cells % 0.0 Immature Granulocytes # 0.050 H Neutrophils # 7.7 H Lymphocytes # 2.1 Monocytes # 0.9 Eosinophils # 0.7 H Basophils # 0.1 Nucleated Red Blood Cells # 0.0 Sodium Level 144 Potassium Level 3.9 Chloride Level 109 Carbon Dioxide Level 26 Anion Gap 9 Blood Urea Nitrogen 20 Creatinine 0.98 Glucose Level 113 Calcium Level 8.7 Phosphorus Level 3.2 Magnesium Level 2.2 Albumin 3.9 Triglycerides Level 120 Cholesterol Level 168 LDL Cholesterol, Calculated 103 HDL Cholesterol 41 Cholesterol/HDL Ratio 4.0 Subjective 24 Hr Interval Summary Free Text/Dictation Patient doing well and denies any chest pain. No acute overnight events. Exam/Review of Systems Exam Vitals Vital Signs Date Temp Pulse Resp B/P (MAP) Pulse Ox O2 O2 Flow FiO2 Time Delivery Rate 08/31/18 59 17 08:01 08/31/18 98.0 122/85 100 Room Air 08:00 (97) 08/29/18 2 14:50 Intake and Output 08/30/18 08/30/18 08/31/18 1515:00 23:00 07:00 IntakeIntake Total 360 ml 360 ml OutputOutput Total 400 ml BalanceBalance -40 ml 360 ml Exam General: Patient is laying in bed and answers questions. no acute distress Chest: nontender Respiratory: Clear to auscultation bilaterally. no wheezing or rhonchi Cardiovascular: S1, S2, regular rate and rhythm, no obvious murmurs Gastrointestinal: soft, nontender to palpation, nondistended, bowel sounds heard Skin: No new skin lesions Results Results 24hrs Laboratory Tests Test 08/31/18 04:54 White Blood Count 11.6 H Red Blood Count 4.58 L Hemoglobin 14.5 Hematocrit 43.6 Mean Corpuscular Volume 95.2 Mean Corpuscular Hemoglobin 31.7 Mean Corpuscular Hemoglobin Concent 33.3 Red Cell Distribution Width 12.7 Platelet Count 202 Mean Platelet Volume 10.5 H Immature Granulocytes % 0.400 Neutrophils % 66.9 Lymphocytes % 18.2 Monocytes % 8.1 Eosinophils % 5.9 Basophils % 0.5 Nucleated Red Blood Cells % 0.0 Immature Granulocytes # 0.050 H Neutrophils # 7.7 H Lymphocytes # 2.1 Monocytes # 0.9 Eosinophils # 0.7 H Basophils # 0.1 Nucleated Red Blood Cells # 0.0 Sodium Level 144 Potassium Level 3.9 Chloride Level 109 Carbon Dioxide Level 26 Anion Gap 9 Blood Urea Nitrogen 20 Creatinine 0.98 Glucose Level 113 Calcium Level 8.7 Phosphorus Level 3.2 Magnesium Level 2.2 Albumin 3.9 Triglycerides Level 120 Cholesterol Level 168 LDL Cholesterol, Calculated 103 HDL Cholesterol 41 Cholesterol/HDL Ratio 4.0 Medications Medication Current Medications IV Flush (NS 3 ml) 3 ml PER PROTOCOL IV ; Start 08/29/18 at 18:30 Ondansetron HCl (Zofran Inj) 4 mg Q6H PRN IV NAUSEA/VOMITING; Start 08/29/18 at 18:30 Nitroglycerin (Nitroglycerin (Sl Tab) 0.4 Mg) 1 tab Q5M PRN SL .CHEST PAIN; Start 08/29/18 at 18:30 Acetaminophen (Tylenol Tab) 650 mg Q6H PRN PO .PAIN 1-3 OR TEMP; Start 08/29/18 at 18:30 Acetaminophen/ Hydrocodone Bitart ([place] (5/325)) 1 tab Q6H PRN PO .PAIN 4-6; Start 08/29/18 at 18:30 Docusate Sodium (Colace) 100 mg Q12H PRN PO .CONSTIPATION; Start 08/29/18 at 18:30 Magnesium Hydroxide (Milk Of Mag) 30 ml DAILY PRN PO .CONSTIPATION; Start 08/29/18 at 18:30 Pantoprazole (Protonix Tab) 40 mg DAILY@06 PO Last administered on 08/31/18at 05:38; Admin Dose 40 MG; Start 08/30/18 at 06:00 Morphine Sulfate (morphine) 2 mg Q2H PRN IV PAIN LEVEL 4-6; Start 08/29/18 at 18:30 Ticagrelor (Brilinta) 90 mg BID PO Last administered on 08/31/18 08:46; Admin Dose 90 MG; Start 08/30/18 at 09:00 Acetaminophen (Tylenol Tab) 650 mg Q4H PRN PO PAIN; Start 08/30/18 at 02:30 Oxycodone/ Acetaminophen (Percocet (5/ 325)) 1 tab Q4H PRN PO PAIN; Start 08/30/18 at 02:30 Morphine Sulfate (morphine) 1 mg Q1H PRN IV PAIN; Start 08/30/18 at 02:30 Al Hydrox/Mg Hydrox/Simethicone (Mag-Al Plus) 30 ml Q4H PRN PO GASTROINTESTINAL UPSET; Start 08/30/18 at 02:30 Ondansetron HCl (Zofran Inj) 4 mg Q4H PRN IV NAUSEA AND/OR VOMITING; Start 08/30/18 at 02:30 Docusate Sodium (Colace) 100 mg BID PO Last administered on 08/31/18 08:46; Admin Dose 100 MG; Start 08/30/18 at 09:00 Famotidine (Pepcid) 20 mg Q12 PO Last administered on 08/31/18 08:46; Admin Dose 20 MG; Start 08/30/18 at 09:00 Carvedilol (Coreg) 3.125 mg BID PO Last administered on 08/31/18 08:46; Admin Dose 3.125 MG; Start 08/30/18 at 09:00 Atorvastatin Calcium (Lipitor) 80 mg DAILY@21 PO Last administered on 08/30/18at 20:38; Admin Dose 80 MG; Start 08/30/18 at 21:00 Nicotine (Nicoderm 21 Mg/ 24hr) 1 patch DAILY TRANSDERM Last administered on 08/31/18at 08:45; Admin Dose 1 PATCH; Start 08/30/18 at 11:00 YMKEL ANDERSEN MD Aug 31, 2018 08:56
[2018-08-31] MEDS ORDERED: ATOR-2 PO (09:48)
[2018-08-31] MEDS ORDERED: NITR0.4T32 SL (09:48)
[2018-08-31] MEDS ORDERED: NICO-546 TRANSDERM (09:48)
[2018-08-31] MEDS ORDERED: TICA90TA PO (09:48)
[2018-08-31] MEDS ORDERED: CARV3.1260 PO (09:48)
--- NOTE | 2018-08-31 10:04 | PDOCDIS ---
Discharge Instructions DIAGNOSIS Discharge Diagnosis 1. ST elevation MN in the left anterior descending artery s/p PCI and stent placement 2. Tobacco abuse CONDITION [id number] Patient Condition: [id number] Stable HOME CARE INSTRUCTIONS: [id number] Diet Instructions: [id number] Low Fat /Cholesterol ACTIVITY: [id number] Activity Restrictions: [id number] No Restrictions FOLLOW UP/APPOINTMENTS Follow-up Plan 1. Follow up with your primary care physician in 1 week 2. Follow up with Cardiology in [address] Gunn's office will call you on Sunday 3. Continue all medications as prescribed 4. You will need to be on Brilinta twice a day for 1 year. If you experience any falls and head trauma, please go to the emergency department 5. If you have any other concerning symptoms, please go to your closest emergency department 6. It is highly recommended that you continue smoking cessation. You will need to continue on nicotine patch 21 mg for 6 weeks then be tapered. Follow up with your PCP for the tape. MYKEL ANDERSEN MD Aug 31, 2018 10:03
--- NOTE | 2018-08-31 15:01 | RADRPT ---
Echocardiogram Report Patient Name: RHETT LIGHTBPatient ID: [id number] : 1965 (53y 1m)Study Date: 08/30/2018 7:35:41 AM Gender: MAccession #: [id number] Tech: DionicioJoyce Pierre [facility] [[email or web address]] Location: [facility] Ref.Physician: MYKEL ANDERSEN Height(Cm): BSA: Weight(Kg): Quality: AdequateAccount #: Procedures: Echocardiographic Report: Transthoracic echocardiogram with complete 2D, M-Mode, and doppler examination. Indications: Evaluate Left Ventricular function, and Chest Pain. Measurements: 2D/M Mode Doppler Measurement Value Normal Range Measurement Value Normal Range LVIDd 2D 4.6 [ 4.2 - 5.8 ] cm AV Peak Ildefonso 1.1 [ 100.0 - 170.0 ] cm/sec LVIDs 2D 2.5 [ 2.5 - 4.0 ] cm AV Peak PG 5.0 [ 2.0 - 9.0 ] mmHg LVPWd 2D 1.1 [ 0.6 - 1.0 ] cm LVOT Peak Ildefonso 1.1 [ 70.0 - 110.0 ] cm/sec IVSd 2D 1.2 [ 0.6 - 1.0 ] cm LVOT Peak PG 4.0 [ 2.0 - 6.0 ] mmHg AoR Diam 2D 3.5 [ 2.6 - 3.4 ] cm Lat E` Ildefonso 0.1 [ 10.0 - 15.0 ] cm/sec EDV 2D 95.9 [ 62.0 - 150.0 ] ml ESV 2D 22.3 [ 21.0 - 61.0 ] ml EF 2D 76.7 [ 52.0 - 72.0 ] percent LA Dimen 2D 3.2 [ 3.0 - 4.0 ] cm Findings: Left Ventricle: Normal left ventricular systolic function. Normal left ventricular cavity size. Mild concentric left ventricular hypertrophy. Ejection fraction is visually estimated at 60 %. Tissue Doppler/Mitral Doppler indices are within normal limits. Right Ventricle: Normal right ventricular size. Normal right ventricular systolic function. Left Atrium: The left atrium is normal in size. Right Atrium: The right atrium is normal in size. Mitral Valve: Normal appearance of the mitral valve. Trace mitral regurgitation. Aortic Valve: No significant aortic stenosis or insufficiency. Normal trileaflet aortic valve structure. Tricuspid Valve: Normal appearance of the tricuspid valve. Unable to obtain RVSP due to minimal presence of tricuspid regurgitation. Pulmonic Valve: Normal pulmonic valve appearance. Pericardium: Normal pericardium with no significant pericardial effusion. Aorta: Normal aortic root. IVC: Normal size and normal respiratory collapse consistent with normal right atrial pressure. Conclusions: Normal left ventricular systolic function. Normal left ventricular cavity size. Mild concentric left ventricular hypertrophy. Ejection fraction is visually estimated at 60 %. Tissue Doppler/Mitral Doppler indices are within normal limits. Normal appearance of the tricuspid valve. Unable to obtain RVSP due to minimal presence of tricuspid regurgitation. No significant aortic stenosis or insufficiency. Normal trileaflet aortic valve structure. Normal pericardium with no significant pericardial effusion. Normal aortic root. Normal size and normal respiratory collapse consistent with normal right atrial pressure. No Vegetation, masses, or thrombi seen. Electronically Signed By: Italo Gunn 2018-08-31 15:01:09 PST
--- NOTE | 2018-08-31 17:24 | DS ---
Date/Time of Note Date/Time of Note DATE: 08/31/18 TIME: 17:21 Discharge Summary Admission/Discharge Info Admit Date/Time Aug 29, 2018 at 17:53 Discharge Date/Time Aug 31, 2018 at 15:[address] elevation [place] in the left anterior descending artery s/p PCI and stent placement 2. Tobacco abuse Patient Condition: Stable Consults Cardiology- Dr. Gunn Procedures PREOPERATIVE DIAGNOSIS: 1. ST elevation myocardial infarction. POSTOPERATIVE DIAGNOSES: 1. Coronary artery disease with acute myocardial infarction. 2. Status post percutaneous coronary intervention to mid left circumflex with drug-eluting stent x1. 3. PTCA alone of the distal left circumflex. REFERRING PHYSICIAN: Tomasa Hernandez M.D. PROCEDURE PERFORMED: 1. Left heart catheterization. 2. Administration of moderate sedation. 3. Percutaneous coronary intervention of acute thrombotic lesion in the mid left circumflex. 4. Percutaneous transluminal coronary angioplasty alone of the distal left circumflex. HISTORY: The patient is a 53-year-old man with a history of smoking, presented to [facility], where he works with chest pain, arm pain, found to have non-STEMI initially; however, had progression of troponin from 0.[address] elevation in anterior leads. The patient felt well; however, decision was made to proceed to emergent left cardiac catheterization PCI. The patient and family were aware of all risks, benefits prior to arrival in catheterization lab. PROCEDURE DESCRIPTION: The patient was brought to catheterization lab in stable condition after informed consent was obtained. Right wrist was prepped and draped in usual sterile fashion and anesthetized with 1% lidocaine solution. Right radial artery access was obtained using through and through technique and 6-Indian TerumVertro Slender sheath was placed in the right radial artery without difficulty. A Cardiolite 4.0 6-Indian guide catheter was advanced to the left coronary over wire under fluoroscopic guidance. Cineangiograms were performed of the left coronary artery and then right coronary artery. Cardiolite was advanced over a wire to the LV and pressures were obtained including LV to AO pullback. Given acute lesion in left circumflex, decision was made to proceed with PCI. PCI DESCRIPTION: The patient's was given additional IV heparin and loaded with aspirin and ticagrelor prior to arrival in catheterization lab. ACT was checked and confirmed in the therapeutic range. A 180 cm Runthrough wire was advanced to the distal OM1 to mid left circumflex without difficulty. Given heavy thrombus burden aspiration catheter brought to catheter was advanced to the mid left circumflex and aspiration thrombectomy was performed. The aspiration catheter was then exchanged for a 3.5 x 20 mm drug-eluting stent was used to stent from proximal left circumflex jailing the mid to distal left circumflex. After angioplasty, it was noted that this was less effective branch. Therefore, 190 cm BMW wire was advanced to the distal circumflex without difficulty. A 2.5 x 8 mm Emerge balloon was advanced to the ostium at the bifurcation of the OM and distal circumflex as well as a 3.5 x 12 mm Emerge balloon was advanced to the mid left circumflex stent and kissing balloon inflations were performed on the 2 vessels simultaneously. The 2.5 mm balloon was removed and a 3.5 mm balloon was withdrawn proximally for postdilation of the proximal stent to high pressure. Both wounds were removed. Repeat angiograms were obtained after IC nitro was given. The distal left circumflex lesion was evaluated and attempted PCI was made, the 180 cm Runthrough wire was then advanced past the distal left circumflex lesion. A 2.25 x 12 mm drug-eluting stent was advanced to the lesion; however, this would not cross. The stent was removed and deployed a 2.0 x 12 mm Emerge balloon was then advanced to his left circumflex and inflated to 8 atms and balloon was removed. Reattempted crossing was made with 2.25 mm drug-eluting stent. However, this still would not cross. Repeat angiogram showed no evidence of dissection or impairment of distal flow. There was improvement of stenosis and the patient was chest pain free. Decision was made at this point to not attempt any further attempted PCI concluded with an angioplasty and 1% of the distal left circumflex artery. All wires and catheters removed. Angiograms were obtained showing no evidence of dissection, perforation or distal embolization. Hemostasis obtained with TR band. The patient tolerated procedure well without complication. Estimated blood loss less than 100 mL. COMPLICATIONS: None. SPECIMENS OBTAINED: None. FINDINGS: HEMODYNAMICS: Opening pressure 141/10. The patient's opening pressure was 133/78 with a mean pressure 101. LVEDP is 25 mmHg without any significant gradient LV to AO pullback. CORONARY ANATOMY: 1. Left main is a large vessel, short length without significant disease. 2. LAD is a large wraparound vessel. Proximal has mild diffuse disease, calcific, which is 20%. It gives rise to a large diagonal 1, which has mild proximal disease, 20%. The mid LAD has disease 30%, which is diffuse. The distal LAD has mild diffuse disease 10%. 3. Left circumflex artery: A large nondominant artery. There is a small OM1, which arises early with a proximal 20% to 30% lesion. The mid left circumflex has a thrombotic acute lesion 90% with LORENE 3 flow. It gives rise to a very large OM2 branch, which is mild diffuse disease 20% to 30%. The patient distal left circumflex appears to have ostial 30% lesion after bifurcation of the OM2 vessel. More distal portion of the left circumflex has an 80% lesion with LORENE 3 flow. 4. Right coronary artery: There is a very large, dominant branch. Proximally has a diffuse 20% stenosis. Mid circumflex has diffuse 20% stenosis. 5. The distal right coronary has no significant disease and bifurcates into a long average size right PDA and artery without disease and a right posterolateral branch with a mid 40% stenosis. PERCUTANEOUS CORONARY INTERVENTION LESION DESCRIPTION: 1. (Mid LAD), pre-stenosis 89%, post-stenosis 0%. Pre-LORENE flow 3. Post-LORENE flow 3, thrombotic lesion. Status post percutaneous coronary intervention with 3.5 x 20 mm Synergy drug-eluting stent. 2. (Distal LAD), pre-stenosis 80%, post-stenosis 50%. Pre-LORENE flow 3, post- LORENE 3 flow. Status post PTCA alone with 2.0 mm balloon. SUMMARY: 1. Acute myocardial infarction due to mid LAD thrombotic stenosis. 2. Chronic left circumflex severe disease. 3. Moderately elevated left ventricular filling pressures. 4. Successful PCI to mid left circumflex artery and PTCA to distal left circumflex artery. RECOMMENDATIONS: 1. Continue aspirin 81 mg p.o. daily. 2. Continue ticagrelor 90 mg p.o. b.i.d. 3. Add high dose statin. Add beta gonzalo as tolerated and p.r.n. nitrates. Obtain echo in the morning. Monitor closely, postprocedure in ICU. PROCEDURE: XR Chest. CLINICAL INDICATION: Chest pain. TECHNIQUE: Single frontal view. COMPARISON: 08/09/2016. FINDINGS: The lungs are clear. The heart size is normal. There is no pleural effusion. There is no pneumothorax. IMPRESSION: 1. Normal chest radiograph. RPTAT: QQ .Pancho Herrera MD, Date Time Electronically viewed and signed by .Panhco Herrera MD, on 08/29/2018 14:51 Hx of Present Illness 53 yo M with PMH no significant PMH presented to ED secondary to sudden onset of sternal pain, moderate in nature, nonradiating, not associated with dizziness, shortness of breath, nausea or vomiting. Patient works at [employer] and was lifting a scanner twice prior to experiencing the pain. He states he got diaphoretic and described the pain as similar to heart burn. Patient states the pain lasted minutes and resolved. He states he was experiencing bilateral arm fatigue since yesterday but does pull up and push ups on a daily basis and was feeling sore this am. Patient denies any history of cardiac issues and no family history of cardiac disease. Patient admits to drinking multiple cups of coffee a day as well as 1 ppd tobacco use. Hospital Course Patient was admitted for close monitoring due to complaints of chest pain. He was found with an elevated troponin and serial troponins were trended. Patients second troponin was significantly elevated from the first and EKG was performed with suspicion for STEMI. Patient was taken to dentures lab technician by Cardiology and PCI to LAD was performed with 1 stent placed. Patient was transferred to ICU for close monitor where he did well post procedure. Patient was started on new medications including DAPT, statin, and BB. Patient was monitored for another 24 hours and tobacco cessation counseling was provided. Patients vitals remained stable and he tolerated medications well. Patient did not have any further episodes of chest pain. He was cleared by cardiology and was discharged home in good condition. Home Meds Active Scripts Nitroglycerin* (Nitroglycerin* SL) 0.4 Mg Tab.subl, 1 TAB SL Q5M PRN for .CHEST PAIN for 30 Days, #120 TAB 3 Refills Prov:TOMASA HERNANDEZ MD 08/31/18 Carvedilol* (Carvedilol*) 3.125 Mg Tablet, 3.125 MG PO BID for 30 Days, #60 TAB 6 Refills Prov:TOMASA HERNANDEZ MD 08/31/18 Atorvastatin* (Atorvastatin*) 80 Mg Tablet, 80 MG PO DAILY@21 for 30 Days, #30 TAB 6 Refills Prov:TOMASA HERNANDEZ MD 08/31/18 Ticagrelor* (Brilinta*) 90 Mg Tablet, 90 MG PO BID for 30 Days, #60 TAB 11 Refills Prov:TOMASA HERNANDEZ MD 08/31/18 Nicotine* (Nicotine* Patch) 21 mg/day Patch, 1 PATCH TRANSDERM DAILY for 42 Days, #42 PATCH.BWK Prov:TOMASA HERNANDEZ MD 08/31/18 Follow-up Plan 1. Follow up with your primary care physician in 1 week 2. Follow up with Cardiology in [address] Gunn's office will call you on Sunday 3. Continue all medications as prescribed 4. You will need to be on Brilinta twice a day for 1 year. If you experience any falls and head trauma, please go to the emergency department 5. If you have any other concerning symptoms, please go to your closest emergency department 6. It is highly recommended that you continue smoking cessation. You will need to continue on nicotine patch 21 mg for 6 weeks then be tapered. Follow up with your PCP for the tape. Primary Care Provider Care Physician No Primary Time spent on discharge: > 30 minutes Pending Labs Laboratory Tests Test 08/31/18 04:54 White Blood Count 11.6 10^3/ul (4.8-10.8) Red Blood Count 4.58 10^6/ul (4.70-6.10) Hemoglobin 14.5 g/dl (14.0-18.0) Hematocrit 43.6 % (42.0-52.0) Mean Corpuscular Volume 95.2 fl (82.0-101.0) Mean Corpuscular Hemoglobin 31.7 pg (29.0-33.0) Mean Corpuscular Hemoglobin Concent 33.3 g/dl (32.0-37.0) Red Cell Distribution Width 12.7 % (11.5-14.5) Platelet Count 202 10^3/UL (140-415) Mean Platelet Volume 10.5 fl (7.4-10.4) Immature Granulocytes % 0.400 % (0.001-0.429) Neutrophils % 66.9 % (39.0-77.0) Lymphocytes % 18.2 % (15.0-51.0) Monocytes % 8.1 % (0.0-11.0) Eosinophils % 5.9 % (0.0-7.0) Basophils % 0.5 % (0.0-2.0) Nucleated Red Blood Cells % 0.0 /100WBC (0.0-0.0) Immature Granulocytes # 0.050 10^3/ul (0.0-0.031) Neutrophils # 7.7 10^3/ul (1.6-7.5) Lymphocytes # 2.1 10^3/ul (0.8-2.9) Monocytes # 0.9 10^3/ul (0.3-0.9) Eosinophils # 0.7 10^3/ul (0.0-0.5) Basophils # 0.1 10^3/ul (0.0-0.1) Nucleated Red Blood Cells # 0.0 10^3/ul (0.0-0.0) Sodium Level 144 mmol/L (135-144) Potassium Level 3.9 mmol/L (3.5-5.1) Chloride Level 109 mmol/L (97-110) Carbon Dioxide Level 26 mmol/L (21-31) Anion Gap 9 (5-13) Blood Urea Nitrogen 20 mg/dl (7-20) Creatinine 0.98 mg/dl (0.61-1.24) Glucose Level 113 mg/dl (70-220) Calcium Level 8.7 mg/dl (8.4-10.2) Phosphorus Level 3.2 mg/dl (2.5-4.9) Magnesium Level 2.2 mg/dl (1.7-2.5) Albumin 3.9 g/dl (3.3-4.9) Triglycerides Level 120 mg/dl (0-149) Cholesterol Level 168 mg/dl (100-200) LDL Cholesterol, Calculated 103 mg/dl HDL Cholesterol 41 mg/dl (28-71) Cholesterol/HDL Ratio 4.0 RATIO TOMASA HERNANDEZ MD Aug 31, 2018 17:24
--- NOTE | 2018-08-31 22:57 | CONS ---
Assessment/Plan Assessment/Plan Hospital Course (Demo Recall) NSTEMI- evolving to BHARGAVI doing welll pci lcx cont asa ticagrelot statin low dose bb fu as outpt smoking- cessation recommended dose Consultation Date/Type/Reason Admit Date/Time Aug 29, 2018 at 17:53 Initial Consult Date 08/30/18 Type of Consult Cardiology Requesting Provider: MYKEL ANDERSEN MD Date/Time of Note DATE: 08/31/18 TIME: 22:54 Exam/Review of Systems Exam Vitals Vital Signs Date Temp Pulse Resp B/P (MAP) Pulse Ox O2 O2 Flow FiO2 Time Delivery Rate 08/31/18 66 18 131/86 99 Room Air 15:00 (101) 08/31/18 98.0 14:00 08/29/18 2 14:50 Intake and Output 08/30/18 08/30/18 08/31/18 1515:00 23:00 07:00 IntakeIntake Total 360 ml 360 ml OutputOutput Total 400 ml BalanceBalance -40 ml 360 ml Results Result Diagram: 08/31/18 0454 08/31/18 0454 Results 24hrs Laboratory Tests Test 08/31/18 04:54 White Blood Count 11.6 H Red Blood Count 4.58 L Hemoglobin 14.5 Hematocrit 43.6 Mean Corpuscular Volume 95.2 Mean Corpuscular Hemoglobin 31.7 Mean Corpuscular Hemoglobin Concent 33.3 Red Cell Distribution Width 12.7 Platelet Count 202 Mean Platelet Volume 10.5 H Immature Granulocytes % 0.400 Neutrophils % 66.9 Lymphocytes % 18.2 Monocytes % 8.1 Eosinophils % 5.9 Basophils % 0.5 Nucleated Red Blood Cells % 0.0 Immature Granulocytes # 0.050 H Neutrophils # 7.7 H Lymphocytes # 2.1 Monocytes # 0.9 Eosinophils # 0.7 H Basophils # 0.1 Nucleated Red Blood Cells # 0.0 Sodium Level 144 Potassium Level 3.9 Chloride Level 109 Carbon Dioxide Level 26 Anion Gap 9 Blood Urea Nitrogen 20 Creatinine 0.98 Glucose Level 113 Calcium Level 8.7 Phosphorus Level 3.2 Magnesium Level 2.2 Albumin 3.9 Triglycerides Level 120 Cholesterol Level 168 LDL Cholesterol, Calculated 103 HDL Cholesterol 41 Cholesterol/HDL Ratio 4.0 LACY FLEMING Aug 31, 2018 22:57
--- NOTE | 2018-09-02 08:53 | RADRPT ---
Vent Rate: 56 bpm RR Interval: 0 msec RI Interval: 164 msec QRS Duration: 88 msec QT Interval: 432 msec QTC Interval: 416 msec P-R-T [place]: 58 - 68 - 92 degrees Sinus bradycardia Minimal voltage criteria for LVH, may be normal variant ST elevation, consider early repolarization, pericarditis, or injury Nonspecific T wave abnormality Abnormal ECG Electronically Signed By: Pavan Chin
== END 2018-08-31 15:40 | disposition home or self-care (01) | DRG 247 ==
LOC: E/R 14:07 → TEL 17:53 → CANRESERV 20:20 → ICU 08-30 02:38
PROVIDERS: ADMIT Internal Medicine; ATTEND Internal Medicine
PROC: 02C03ZZ Extirpation of Matter from Coronary Artery, One Artery, Percutaneous Approach (ICD-10-PCS; 2018-08-30)
PROC: 4A023N7 Measurement of Cardiac Sampling and Pressure, Left Heart, Percutaneous Approach (ICD-10-PCS; 2018-08-30)
PROC: B211YZZ Fluoroscopy of Multiple Coronary Arteries using Other Contrast (ICD-10-PCS; 2018-08-30)
PROC: 027034Z Dilation of Coronary Artery, One Artery with Drug-eluting Intraluminal Device, Percutaneous Approach (ICD-10-PCS; principal; 2018-08-30 00:45)
DX: I21.02 ST elevation (STEMI) myocardial infarction involving left anterior descending coronary artery (principal); I25.10 Atherosclerotic heart disease of native coronary artery without angina pectoris; F17.200 Nicotine dependence, unspecified, uncomplicated
CPT/HCPCS: 36415; 71045; 80048; 80061; 80069; 82550; 82553; 82962; 83036; 83735; 84443; 84484; 85025; 87081; 93005; 93306; 93458; 97161; C1725; C1757; C1874; C9606; J1644; J1650; J2250; J3010; J7030; Q9967